=== PATIENT | female | born 1955 | race Caucasian/White ===

== ENCOUNTER 2017-03-02 20:48 | Emergency (ER) | payer OTHER ==
--- NOTE | ~2017-03-02 | ER ---
PATIENT'S NAME: SHAMA WRAY [facility] AGE: 61 Y [address] ROOM: [place] [address] LOCATION: [facility] ADMIT DATE: 03/02/2017 ER/Outpatient Report DISCHARGE DATE: 03/02/2017 FAMILY PHYSICIAN: Octaviano Isabel MD ATTENDING PHYSICIAN: Dhiraj Noonan Admission date and time are documented in the medical record. I saw the patient at 2110 hours. CHIEF COMPLAINT: Visual changes. HISTORY OF PRESENT ILLNESS: The patient is a 61-year-old female who evening started to have some visual disturbances. She says that she has seen floaters in both eyes. She states that her vision in the right eye "would go out." She has had a headache yesterday and early this morning. Continues today to have her vision "going out off and on" and also the patient is seeing floaters. She denies any eye pain. No double vision. Her vision is not blurred. She states that it just goes completely out and then her vision comes back and has had this intermittently. No loss of visual field. No earache, nose, throat, or neck pain. No spine pain. No chest pain or shortness of breath. No abdominal pain, nausea, vomiting, diarrhea, or urinary complaints. No fall or trauma. No recent colds, coughs, flus, fever, chills, or sweats. No neuro changes other than the visual disturbance. No skin eruptions or rash. The patient does have hypothyroidism, but no diabetes. Does have anxiety, depression, headaches, and chronic pain syndrome. HOME MEDICATIONS: See attached medications list. ALLERGIES: HYDROXYZINE, NUBAIN, TORADOL, COMPAZINE, BEES, AND BEE STINGS. SOCIAL HISTORY: The patient smokes 1 to 2 packs cigarettes a day and nondrinker. SIGNIFICANT PAST MEDICAL HISTORY: Tobacco abuse, anxiety, depression, headaches, COPD, chronic pain syndrome, and hypothyroidism. OPERATIONS: Cataract extraction, knee surgery, and back surgery. REVIEW OF SYSTEMS: PATIENT'S NAME: SHAMA WRAY [facility] AGE: 61 Y [address] ROOM: [place] [address] LOCATION: [facility] ADMIT DATE: 03/02/2017 ER/Outpatient Report DISCHARGE DATE: 03/02/2017 FAMILY PHYSICIAN: Octaviano Isabel MD ATTENDING PHYSICIAN: Dhiraj Noonan All systems reviewed by me are negative with the exception of those discussed in the history of present illness. PHYSICAL EXAMINATION: VITAL SIGNS: Temperature 98.1, tympanic, pulse 85, respirations 16, blood pressure 121/79, and O2 sat on room air is 97%. HEAD: Normocephalic. EYES: Extraocular muscles intact. PERRL. No visual field deficits on my exam. Funduscopic exam I could not see any floaters. I do not see any abnormalities of the retinas bilaterally. Vessels appear to be normal. I did not see any evidence of retinal hemorrhage. EARS: Clear TMs bilaterally. NOSE: Clear. THROAT: Clear. NECK: Negative. LUNGS: Clear. HEART: Regular. ABDOMEN: Soft, nontender. Good bowel tones. EXTREMITIES: Without peripheral edema, cyanosis, or deformity. Moves all 4 extremities. NEUROVASCULAR: Intact. All cranial nerves were intact. No skin eruptions or rash. LABORATORY DATA: CT scan of the head showed no intracranial bleed, midline shift, mass effect, or skull fracture. IMPRESSION: 1. Visual disturbance, etiology undetermined at this time. 2. History of headaches. 3. History of anxiety and depression. 4. History of chronic pain syndrome. 5. History of hypothyroidism. PLAN: The patient discharged home. Observation. Activity as tolerated. Continue present home medications and care. Rest. Follow up with personal physician as needed. I instructed her to see an trouble locater school psychology specialist 1st part of this coming week for ophthalmologic exam. I did discuss my findings and recommendations with the patient, she understands. DHIRAJ NOONAN MD PATIENT'S NAME: SHAMA WRAY [facility] AGE: 61 Y [address] ROOM: [place], [place] [address] LOCATION: [facility] ADMIT DATE: 03/02/2017 ER/Outpatient Report DISCHARGE DATE: 03/02/2017 FAMILY PHYSICIAN: Octaviano Isabel MD ATTENDING PHYSICIAN: Dhiraj Noonan SDS/modl /[id number] d: 03/02/17 2357 t: 03/03/17 0339, OUTPATIENT REPORT
[~2017-03-02 20:48] MED LIST: ACIPHEX20 MG PO; DEPO-ESTRAD5 MG/1 ML IM; EPIPEN 2-P0.3 MG/0.3 IM; HORMONE INJECTION; LEVOTHROID (S125 MCG PO; NEURONTIN100 MG PO; NICODERM / HABIT7 MG TRANS; NICODERM/HABITR21 MG TRANS; PERCOCET 5-3251 EACH PO; PROTONIX40 MG PO; REMERON15 M1 PO; REMERON15 MG PO; TYLENOL325 MG PO; VALIUM10 MG PO; VALIUM5 MG PO; VICODIN 5-3001 EACH; VITAMIN D35000 UNI1 PO; VITAMIN D35000 UNIT PO; XANAX0.5 MG PO; XANAX1 MG PO; ZOLOFT50 MG PO; ZYPREXA2.5 MG PO
== END 2017-03-02 22:23 | disposition disaster alternative care site (69) ==
LOC: GMED 20:48
DX: H53.9 Unspecified visual disturbance (principal); E03.9 Hypothyroidism, unspecified; F17.210 Nicotine dependence, cigarettes, uncomplicated; F41.9 Anxiety disorder, unspecified; F32.9 Major depressive disorder, single episode, unspecified; J44.9 Chronic obstructive pulmonary disease, unspecified; Z98.890 Other specified postprocedural states; Z88.5 Allergy status to narcotic agent; Z88.8 Allergy status to other drugs, medicaments and biological substances; Z79.899 Other long term (current) drug therapy